=== PATIENT | female | born 1995 | race Caucasian/White ===

== ENCOUNTER 2019-01-24 10:50 | Emergency (ER) | payer SELFPAY ==
[~2019-01-24] VITALS: Ht 162.6 cm; Wt 84.8 kg
[2019-01-24 10:55] VITALS: BP 124/75
== END 2019-01-24 11:15 | disposition left against medical advice (07) ==
LOC: MED 10:50
DX: O20.8 Other hemorrhage in early pregnancy (principal); Z3A.12 12 weeks gestation of pregnancy; Z53.21 Procedure and treatment not carried out due to patient leaving prior to being seen by health care provider